=== PATIENT | male | born 1955 | race Caucasian/White ===

== ENCOUNTER 2016-06-25 06:26 | Day surgery (SDC) | payer BC ==
[2016-06-21 16:23] LABS: HEMATOCRIT 45.6 % (40.0-51.0); HEMOGLOBIN 16.1 g/dL (13.6-17.8)
[2016-06-21 16:34] LABS: BUN (BLOOD UREA NITROGEN) 17 MG/DL (6-23); CALCIUM, SERUM 9.2 MG/DL (8.5-10.4); CHLORIDE, SERUM 104 MMOL/L (96-112); CO2 (CARBON DIOXIDE) 29 MMOL/L (24-34); CREATININE 0.91 MG/DL (0.70-1.30); GFR AFRICAN AMERICAN 106 ML/MIN (>=60); GFR NON AFRICAN AMERICAN 91 ML/MIN (>=60); GLUCOSE, SERUM 95 MG/DL (60-99); POTASSIUM, SERUM 4.2 MMOL/L (3.5-5.3); SODIUM, SERUM 141 MMOL/L (135-148)
--- NOTE | ~2016-06-25 | OP ---
Record Of Operation [facility] [address] [place]. [address] NAME: HOLA GOTTLIEB : 55 [place]US : [place] [facility] [place] [id number] AGE: 60 ADM/REG DATE : 06/25/16 MR#: [id number] REPORT SERV DATE: 06/25/16 DICTATED BY: THOMAS WILSON DATE: 06/25/16 REPORT STATUS : Draft TRANSCRIBED BY: MODL DATE: 06/25/16 DATE OF PROCEDURE: 06/25/2016 PREOPERATIVE DIAGNOSES: 1. Massive herniated nucleus pulposus, far lateral zone left L4-5. 2. Spinal stenosis and disk herniation, left L5-S1. POSTOPERATIVE DIAGNOSES: 1. Massive herniated nucleus pulposus, far lateral zone left L4-5. 2. Spinal stenosis and disk herniation, left L5-S1. PROCEDURES: 1. Microscopic navigation-assisted surgery. 2. Left L4-5 microdiskectomy, far lateral zone. 3. Left L5-S1 hemilaminotomy, partial medial facetectomy, and microdiskectomy. SURGEON: Thomas Wilson D.O. [employer]: Rasheed Paz. ANESTHETIC: General. BLOOD LOSS: 20 mL. INDICATIONS FOR SURGERY: A 60-year-old male, who has had intractable left thigh pain. Most of his symptoms really do follow the L4 distribution. His pain is across the top of the anterior thigh down the medial aspect of his leg. He has marked weakness of his quadriceps, graded 3 and 3+/5. His patellar reflex was completely absent on the left. He has dense decreased sensation in the L4 distribution. His Achilles reflex is also absent, but he does not have any weakness of the tibialis anterior, the peroneus muscles over the gastrocsoleus. He has a markedly positive straight leg raising sign and positive femoral nerve stretch test. The patient has such intractable pain. He is brought to the surgery for the above procedure. There is no chance of him of epidurals or physical therapy, doing anything with this massive far lateral herniation. Consent form is signed. DESCRIPTION OF PROCEDURE: Antibiotic prophylaxis given. Neurophysiology monitoring leads were inserted. The patient was brought to the operative suite. General anesthetic including endotracheal intubation was administered. He was then placed prone on a Demetrius spine frame. Bony prominences were carefully padded. Thoracolumbar spine was scrubbed with solution DuraPrep was painted. Sterile drapes were applied. Because of the complexity of surgery and the need to identify correct level of surgery intraoperatively, as well as desire to carry out the safest and most precise dissection with the least amount of radiation exposure, I felt intraoperative navigation was mandatory. A small stab wound was carried out at the right posterosuperior iliac spine. A percutaneous Record Of Operation [facility] [address] [place]. [address] NAME: HOLA GOTTLIEB : 55 [place]US : [place] [facility] [place]#: [id number] AGE: 60 ADM/REG DATE : 06/25/16 MR#: [id number] REPORT SERV DATE: 06/25/16 DICTATED BY: THOMAS WILSON DATE: 06/25/16 REPORT STATUS : Draft TRANSCRIBED BY: NAY DATE: 06/25/16 pin with navigational frame attached was inserted in PSIS. Intraoperative CT scan with O- arm was obtained. CT information was used to register the navigational system. With navigational assistance, initially I identified the L4-5 level. Just lateral to the facet joint, a 2 cm skin incision was carried out. A blunt navigated probe was placed through the fascia, the muscle, and I docked just lateral to the facet joint with the bottom of the retractor at the mid point of the transverse process of L5 extending proximal. Microscope was sterilely draped and used throughout the remainder of the procedure. With navigational assistance, I identified the top of the pedicle of L5. Even before I started mobilizing, I could see the massive herniation protruding posterior and lateral. Distally, I localized the nerve. I then dissected bluntly, proximally, and encountered just a massive extruded herniation when I removed in three fragments, but all three were just very large. This completely decompressed the nerve. The wound was irrigated. No further nerve compression was found. The hemostasis was obtained with a bipolar cautery. The fascial layer was closed with usual 2-0 Vicryl and 2-0 nylon and vertical mattress sutures respectively. The patient was taken to recovery room in satisfactory condition having tolerated the procedure well. After we completed the far lateral diskectomy, retractor was removed. I then marked the midline at L5-S1. A 2 cm skin incision was carried out. A blunt navigated probe was placed through the fascia and muscle and docked over the interlaminar space. Muscle dilator was inserted followed by placement of a tubular retractor attached to an arm mount on the table. Again, the microscope continued to be used sterilely draped. With navigational assistance, I identified the amount of lamina of L5 that I would need to remove. I removed 25% to 30% of the lamina at L5 and 20% of the medial facet joint of L5-S1 to decompress the lateral recess and to reach the proximal portion of the disk space. The thecal sac and the S1 nerve root were mobilized and there was a disk osteophyte complex with some soft disk and some calcified disk fragment. A chuck zahraa was used to debride the calcified portion and pituitary was used to remove the soft disk material that was impinging. Afterwards no further impingement on the thecal sac or the nerve root was noted. The wound was irrigated. The retractor was removed. The fascial layer was allowed to reapproximate itself. The subcutaneous tissue was closed with 2-0 Vicryl sutures for both incisions and 2-0 vertical mattress nylon suture was used for skin closure on both incisions. Sterile drapes were applied. The patient returned to supine position, awakened, extubated, and taken to recovery room in satisfactory condition having tolerated procedure well. /NAY Thomas Wilson D.O. Record Of Operation [address] [address] NAME: HOLA GOTTLIEB : 55 [place]US : [place] [facility] [place] PAT#: [id number] AGE: 60 ADM/REG DATE : 06/25/16 MR#: [id number] REPORT SERV DATE: 06/25/16 DICTATED BY: THOMAS WILSON DATE: 06/25/16 REPORT STATUS : Draft TRANSCRIBED BY: MODL DATE: 06/25/16 / [id number] / [id number] CC: Alexey Agrawal M.D.
[~2016-06-25 06:26] MED LIST: AMB10 PO; DSS PO; LYRICA75 PO; PERCOCET 10/3251 TAB PO; POTASSIUM GLUC PO; POTASSIUM PO; PRIN10 PO
== END 2016-06-25 16:37 | disposition home or self-care (01) ==
LOC: SDC 06:26
PROVIDERS: Orthopaedic Surgery Orthopaedic Surgery of the Spine
PROC: 0SB20ZZ Excision of Lumbar Vertebral Disc, Open Approach (ICD-10-PCS; principal; 2016-06-25 05:45)
PROC: 01NB0ZZ Release Lumbar Nerve, Open Approach (ICD-10-PCS; 2016-06-25 05:45)
DX: M51.26 Other intervertebral disc displacement, lumbar region (principal); G47.33 Obstructive sleep apnea (adult) (pediatric); K21.9 Gastro-esophageal reflux disease without esophagitis; M54.32 Sciatica, left side; I10 Essential (primary) hypertension; Z90.49 Acquired absence of other specified parts of digestive tract; Z88.0 Allergy status to penicillin; Z87.891 Personal history of nicotine dependence; Z79.899 Other long term (current) drug therapy; Z79.891 Long term (current) use of opiate analgesic
CPT/HCPCS: 80048; 85014; 85018; 88304; 88311; 93005; A9270-GY; J1170; J1580; J1885; J2250; J2274; J2370; J2405; J2710; J3010; J3370